=== PATIENT | female | born 1975 | race Caucasian/White ===

== ENCOUNTER 2022-06-29 11:02 | Outpatient (CLI) | payer BC, SELFPAY ==
--- NOTE | ~2022-06-29 | MMUS_ITS ---
EXAMINATION: MM diagnostic michael BI w jose raul, US breast BI complete HISTORY: Right breast lump since June 09, 2022 TECHNIQUE: ML, MLO and CC 3-D tomosynthesis images of both breasts were performed and synthetic 2-D i mages were generated. CAD analysis was submitted and interpreted. High resolution complete bilateral breast ultrasound examination including all 4 quadrants and subareolar area of each breast was perfor med. COMPARISON: None BREAST PARENCHYMAL COMPOSITION: The breasts are heterogeneously dense, which may obscure small masses . FINDINGS: MAMMOGRAPHIC FINDINGS: Multiple bilateral circumscribed breast masses are noted, particularly on the right, suggesting bilat eral breast cysts. The heterogeneously dense stroma may obscure masses. No architectural distortion, malignant constipation, skin thickening or retraction of either breast i s detected. ULTRASOUND: There are numerous simple cysts and septated cysts scattered in both breasts, the largest on the righ t situated at 9:00 4 cm from the nipple, measuring approximately 7.7 x 15 mm, largest on the left sit uated at 4:00 4 cm from the nipple measuring 14.5 x 10.9 x 17.5 mm. Left breast 7:00 5 cm from nipple: Parallel circumscribed hypoechoic lesion measuring 5 x 7 mm, with through transmission posterior enhancement, consistent with complicated cyst or benign solid lesion. No suspicious mass or shadowing of either breast is detected. IMPRESSION: 1. Benign findings 2. Routine mammographic screening is recommended BI-RADS Category 2: Benign finding(s). Reviewed, dictated and finalized at location A. ILE PROCESS TECH IMPRESSION: 1. Benign findings 2. Routine mammographic screening is recommended BI-RADS Category 2: Benign finding(s).
== END 2022-06-29 11:03 | disposition home or self-care (01) ==
LOC: ANHIMG 11:17
DX: N63.0 Unspecified lump in unspecified breast (principal)
CPT/HCPCS: 76641; 77062; 77066; G0279